=== PATIENT | female | born 1975 | race Caucasian/White ===

== ENCOUNTER → 2024-01-19 06:32 | Day surgery (SDC) | payer OTHER, SELFPAY | LOC: GI 06:32 | PROVIDERS: ATTENDING PHYSICIAN Internal Medicine Gastroenterology | DX: Z12.11 Encounter for screening for malignant neoplasm of colon (principal); K63.5 Polyp of colon; K57.30 Diverticulosis of large intestine without perforation or abscess without bleeding; Q43.8 Other specified congenital malformations of intestine; K64.8 Other hemorrhoids | CPT/HCPCS: 45380; 88305 ==

== ENCOUNTER 2024-02-01 06:34 | Outpatient (RCR) | payer OTHER, SELFPAY | END 2024-02-01 23:59 | disposition home or self-care (01) | LOC: RPT 06:34 | PROVIDERS: ATTENDING PHYSICIAN Radiology Radiation Oncology; FAMILY PHYSICIAN Nurse Practitioner | DX: I97.2 Postmastectomy lymphedema syndrome (principal); C50.912 Malignant neoplasm of unspecified site of left female breast; Z17.0 Estrogen receptor positive status [ER+]; M62.81 Muscle weakness (generalized); Z73.6 Limitation of activities due to disability | CPT/HCPCS: 97162; 97530 ==

== ENCOUNTER 2024-03-04 16:56 | Outpatient (RCR) | payer OTHER, SELFPAY | END 2024-03-04 23:59 | disposition home or self-care (01) | LOC: RPT 16:56 | PROVIDERS: ATTENDING PHYSICIAN Radiology Radiation Oncology; FAMILY PHYSICIAN Nurse Practitioner | DX: C50.912 Malignant neoplasm of unspecified site of left female breast (principal); I97.2 Postmastectomy lymphedema syndrome; Z17.0 Estrogen receptor positive status [ER+]; Z73.6 Limitation of activities due to disability; M62.81 Muscle weakness (generalized) | CPT/HCPCS: 97110; 97140; 97535 ==

== ENCOUNTER 2024-04-08 16:03 | Outpatient (RCR) | payer OTHER, SELFPAY | END 2024-04-08 23:59 | disposition home or self-care (01) | LOC: RPT 16:03 | PROVIDERS: ATTENDING PHYSICIAN Radiology Radiation Oncology; FAMILY PHYSICIAN Nurse Practitioner | DX: I97.2 Postmastectomy lymphedema syndrome (principal); C50.912 Malignant neoplasm of unspecified site of left female breast; Z73.6 Limitation of activities due to disability; Z17.0 Estrogen receptor positive status [ER+]; M62.81 Muscle weakness (generalized) | CPT/HCPCS: 97110; 97140; 97530 ==

== ENCOUNTER 2024-05-10 15:08 | Outpatient (RCR) | payer OTHER, SELFPAY | END 2024-05-10 23:59 | disposition home or self-care (01) | LOC: RPT 15:08 | PROVIDERS: ATTENDING PHYSICIAN Radiology Radiation Oncology; FAMILY PHYSICIAN Nurse Practitioner | DX: I97.2 Postmastectomy lymphedema syndrome (principal); C50.912 Malignant neoplasm of unspecified site of left female breast; Z17.0 Estrogen receptor positive status [ER+]; Z73.6 Limitation of activities due to disability; M62.81 Muscle weakness (generalized) | CPT/HCPCS: 97110; 97530 ==

== ENCOUNTER 2024-06-10 10:05 | Outpatient (RCR) | payer OTHER, SELFPAY | END 2024-06-10 23:59 | disposition home or self-care (01) | LOC: RPT 10:05 | PROVIDERS: ATTENDING PHYSICIAN Radiology Radiation Oncology; FAMILY PHYSICIAN Nurse Practitioner | DX: I97.2 Postmastectomy lymphedema syndrome (principal); C50.912 Malignant neoplasm of unspecified site of left female breast; Z17.0 Estrogen receptor positive status [ER+]; M62.81 Muscle weakness (generalized); Z73.6 Limitation of activities due to disability | CPT/HCPCS: 97110; 97140; 97530 ==

== ENCOUNTER 2024-07-02 18:06 | Outpatient (RCR) | payer OTHER, SELFPAY | END 2024-07-02 23:59 | disposition home or self-care (01) | LOC: RPT 18:06 | PROVIDERS: ATTENDING PHYSICIAN Radiology Radiation Oncology; FAMILY PHYSICIAN Nurse Practitioner | DX: I97.2 Postmastectomy lymphedema syndrome (principal); C50.912 Malignant neoplasm of unspecified site of left female breast; Z17.0 Estrogen receptor positive status [ER+]; M62.81 Muscle weakness (generalized); Z73.6 Limitation of activities due to disability | CPT/HCPCS: 97110; 97140; 97530 ==

== ENCOUNTER → 2025-01-21 14:27 | Outpatient (REF) | payer OTHER, SELFPAY | LOC: HWRAD 14:27 | PROVIDERS: ATTENDING PHYSICIAN Obstetrics & Gynecology Gynecology; FAMILY PHYSICIAN Internal Medicine | DX: N93.9 Abnormal uterine and vaginal bleeding, unspecified (principal) | CPT/HCPCS: 76830; 76856 ==